=== PATIENT | male | born 1955 | race Caucasian/White ===

== ENCOUNTER 2020-11-27 09:01 | Outpatient (CLI) | payer BC, SELFPAY ==
--- NOTE | 2020-11-27 09:11 | ECHO_ITS ---
Patient Info Name: Gregory Montoya Age: 65 years : 1955 Gender: Male Ht: 70 in Wt: 225 lbs BSA: 2.28 m2 HR: 66 bpm BP: 171 / 92 mmHg Technical Quality: Fair Exam Date: 11/27/2020 9:45 AM Exam Location: [facility] Pulmonary Patient Status: Outpatient Admit Date: 11/27/2020 Staff Ordering Physician: Erica Oquendo PAC [employer] Operator [employer]: Mau Brady RDCS Attending Provider: Erica Oquendo Referring Physician: Azra ZAVALA; Exam Type: CA echo doppler color flow Study Info Indications R01.1 - Cardiac murmur, unspecified Complete two-dimensional, color flow and Doppler transthoracic echocardiogram is performed. Summary 1. Complete two-dimensional, color flow and Doppler transthoracic echocardiogram is performed. 2. Left ventricular chamber dimension is normal. 3. Left ventricular systolic function is normal, estimated at 60-65%. 4. There is mildly increased left ventricular wall thickness. 5. The left ventricular diastolic function is grade I diastolic dysfunction. 6. E/e' 12 is mildly elevated. 7. Left atrial chamber dimension is mildly enlarged. 8. There is mild aortic valve sclerosis. 9. There is trace pulmonic regurgitation. Left Ventricle E/e' 12 is mildly elevated. Left ventricular chamber dimension is normal. Left ventricular systolic function is normal, estimated at 60-65%. There is mildly increased left ventricular wall thickness. The left ventricular diastolic function is grade I diastolic dysfunction. Right Ventricle Right ventricular chamber dimension is normal. Right ventricular systolic function is normal. Left Atria Left atrial chamber dimension is mildly enlarged. Right Atria Right atrial chamber dimension is normal. Aortic Valve The aortic valve is trileaflet. There is mild aortic valve sclerosis. There is no aortic valve stenosis. There is no aortic valve regurgitation. Pulmonic Valve There is trace pulmonic regurgitation. Mitral Valve There is no mitral valve stenosis. There is no mitral valve regurgitation. Tricuspid Valve There is no tricuspid valve regurgitation. Pericardium/Pleural There is no pericardial effusion. Inferior Vena Cava Normal inferior vena cava with >50% collapse upon inspiration consistent with normal right atrial pressure, 5 mmHg. Aorta The aortic root size at the sinus of Valsalva is normal. Left Ventricular Outflow Tract Name Value Normal LVOT 2D LVOT Diameter 2.0 cm LVOT Doppler LVOT Peak Gradient 6 mmHg LVOT Mean Gradient 3 mmHg LVOT VTI 25 cm LVOT VTI/AV VTI Ratio 0.7 LVOT Stroke Volume 78 ml LVOT CO 5.2 l/min LVOT CI 2.3 l/min/m2 Mitral Valve Name Value Normal MV Doppler
== END 2020-11-27 09:02 | disposition home or self-care (01) ==
PROVIDERS: PCP Family Medicine; Visit Provider Physician Assistant Medical
DX: R01.1 Cardiac murmur, unspecified (principal); I51.7 Cardiomegaly; I35.8 Other nonrheumatic aortic valve disorders
CPT/HCPCS: 93306

== ENCOUNTER 2024-08-15 09:53 | Outpatient (CLI) | payer MEDICARE, SELFPAY ==
--- NOTE | ~2024-08-15 | US_ITS ---
EXAMINATION: US soft tissue head and neck DATE: 08/15/2024 10:11 INDICATION: Right neck mass. TECHNIQUE: Multiple grayscale and Doppler ultrasound images of the head and neck were obtained. COMPARISON: None FINDINGS: In the right posterolateral neck, there is an ill-defined 10 x 9 x 6 mm hyperechoic subcuta neous mass. IMPRESSION: 1. 10 mm hyperechoic subcutaneous mass in right posterolateral neck, likely inflammation or a lipoma. Reviewed, dictated and finalized at location A. IMPRESSION: 1. 10 mm hyperechoic subcutaneous mass in right posterolateral neck, likely inf lammation or a lipoma.
== END 2024-08-15 09:54 | disposition home or self-care (01) ==
LOC: MICIMG 09:56
PROVIDERS: PCP Family Medicine; Visit Provider Physician Assistant Medical
DX: R22.1 Localized swelling, mass and lump, neck (principal)
CPT/HCPCS: 76536